=== PATIENT | female | born 1980 | race Caucasian/White ===

== ENCOUNTER 2016-05-02 18:28 | Emergency (ER) | payer OTHER ==
[2016-05-02] MEDS ORDERED: CEPHALEXIN 250 MG CAP As Ordered ONE (19:03)
--- NOTE | 2016-05-02 19:08 | EDDOCDS ---
Nurse's Notes [facility] Name: Juana Davey Age: 36 yrs Sex: Female : 1980 Arrival Date: 05/02/2016 Time: 18:28 Bed Triage 3 Private MD: NO PRIMARY PHYSICIAN, . Diagnosis: Acute pharyngitis Presentation: 05/02 18:44 Presenting complaint: Patient states: Patient states started yesterday with sore js13 throat, N/V, sweats, achy everywhere and ears are achy. Adult Sepsis Screening: The patient does not have new or worsening altered mentation. Patient's respiratory rate is less than 22. Systolic blood pressure is greater than 100. Patient has a qSOFA score of 0- Negative Sepsis Screen. Suicide/Homicide risk assessment- the patient denies having any suicidal and/or homicidal ideations and does not present with any other emotional, behavioral or mental health complaints. 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 Transition of care: patient was not received from another setting of care. 18:44 Acuity: LISSETTE Level 3 js13 18:44 Method Of Arrival: Walkin/Carried/Asstd js13 Triage Assessment: 18:46 General: Appears in no apparent distress, Behavior is appropriate for age, cooperative. js13 Pain: Location: all over Pain currently is 4 out of 10 on a pain scale. Pt Declines HIV testing. Neurological: Level of Consciousness is awake, alert. Respiratory: Airway is patent Respiratory effort is even, unlabored, Respiratory pattern is regular, symmetrical. Derm: Skin is pink, warm & dry. 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 ibuprofen 800 mg Oral tab as needed - PMHx: none; - PSHx: Tonsillectomy; - Social history: Smoking status: Patient uses tobacco products, current every day smoker. No barriers to communication noted, The patient speaks fluent Macedonian. - Family history: Not pertinent. - : The pt / caregiver states he / she is not on anticoagulants. Home medication list is obtained from the patient. - Exposure Risk Screening:: None identified. Screenin:47 Screening information is obtained from the patient. Fall risk: No risks identified. js13 Assistance ADL's: requires no assistance with activities of daily living. Abuse/DV Screen: The patient / caregiver reports he/she is: not in a situation that causes fear, pain or injury. Nutritional screening: No deficits noted. Advance Directives: There is no active DNR order. home support is adequate. Assessment: 19:01 General: Appears in no apparent distress, Behavior is appropriate for age, cooperative. js13 Pain: Pain currently is 4 out of 10 on a pain scale. Neurological: Level of Consciousness is awake, alert. Respiratory: Airway is patent Respiratory effort is even, unlabored, Respiratory pattern is regular, symmetrical. GI: Bowel sounds Abd is soft and non tender. Derm: Skin is pink, warm & dry. Vital Signs: 18:30 BP 126 / 76; Pulse 83; Resp 18 S; Temp 99.0(O); Pulse Ox 99% on R/A; Weight 74.84 kg gr2 (R); Height 5 ft. 5 in. (165.10 cm) (R); Pain 4/10; 18:30 Body Mass Index 27.46 (74.84 kg, 165.10 cm) gr2 Vitals: 18:30 Log In Time: May 02, 2016 at 18:30. gr2 18:57 Strep Screen is obtained and tested: Negative, a GATSNEG culture is ordered in [facility] and sent. ED Course: 18:30 Patient visited by Christiano Dickson. gr2 18:30 NO PRIMARY PHYSICIAN, . is Private Physician. gr2 18:30 Patient moved to Waiting gr2 18:31 Patient visited by Christiano Dickson. gr2 18:31 Patient moved to Pre RCE gr2 18:44 Roland Curtis PA-C is PHCP. ar2 18:44 Alex Hernandes MD is Attending Physician. ar2 18:45 Triage Initiated js13 18:47 Patient visited by Cass Alcala RN. js13 18:47 The patient / caregiver is instructed regarding the plan of care and ED course. js13 18:48 Patient visited by Roland Curtis PA-C. ar2 18:48 Patient moved to Triage 3 js13 18:57 GATS (NEGATIVE STREP SCREEN) Sent. js13 19:01 No IV's were initiated during this patient's visit. No procedures done that require js13 assistance. Administered Medications: 19:04 Drug: Cephalexin 500 mg [cephalexin 250 mg capsule (2 caps)] Route: PO; js13 19:07 Follow up: Response: Pt left department before re-evaluation is appropriate js13 Order Results: There are currently no results for this order. Outcome: 19:00 Discharge ordered by Provider. ar2 19:01 Discharge Assessment: Patient awake, alert and oriented x 3. No cognitive and/or js13 functional deficits noted. Patient verbalized understanding of disposition instructions. patient administered narcotics - no. The following High Risk Discharge criteria are identified: None. Discharged to home ambulatory. Condition: stable. No special radiology studies were completed. Property :Personal belongings accompany Pt. 19:05 Discharge instructions given to patient, Instructed on discharge instructions, follow js13 up and referral plans. medication usage, Demonstrated understanding of instructions, medications, Pt was receptive of discharge instructions/ teaching. Prescriptions given X 1. 19:07 Patient left the ED. js13 Signatures: Roland Curtis PA-C PA-C ar2 Cass Alcala RN RN js13 Christiano Dickson gr2 [facility] CENTERArtie
--- NOTE | 2016-05-02 19:08 | EDDOCDS ---
Physician Documentation [facility] Name: Juana Davey Age: 36 yrs Sex: Female : 1980 Arrival Date: 05/02/2016 Time: 18:28 Bed Triage 3 Private MD: NO PRIMARY PHYSICIAN, . Disposition: 05/02/16 19:00 Discharged to Home/Self Care. Impression: Acute pharyngitis. - Condition is Stable. - Discharge Instructions: Pharyngitis. - Prescriptions for Keflex 500 mg Oral Capsule - take 1 capsule by ORAL route every 12 hours for 10 days; 19 capsule. ZOFRAN ODT 4 mg - dissolve 1 tablet by ORAL route 4 times per day As needed do not chew, do not swallow whole; 10 tablet. - Medication Reconciliation, Local Pharmacy Hours form. - Follow up: Emergency Department; When: As needed; Reason: Fever > 102F, Worsening of conditions. - Problem is new. - Symptoms are unchanged. Historical: - Allergies: No known drug Allergies; - Home Meds: 1. ibuprofen 800 mg Oral tab as needed - PMHx: none; - PSHx: Tonsillectomy; - Social history: Smoking status: Patient uses tobacco products, current every day smoker. No barriers to communication noted, The patient speaks fluent Spanish. - Family history: Not pertinent. - : The pt / caregiver states he / she is not on anticoagulants. Home medication list is obtained from the patient. - Exposure Risk Screening:: None identified. 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 5 in. (165.10 cm) (R); Pain 4/10; 18:30 Body Mass Index 27.46 (74.84 kg, 165.10 cm) gr2 MDM: 18:51 Strep Screen, Nursing ordered. ar2 18:55 GATS (NEGATIVE STREP SCREEN) Ordered. EDMS 19:01 Cephalexin 500 mg PO once ordered. ar2 Administered Medications: 19:04 Drug: Cephalexin 500 mg [cephalexin 250 mg capsule (2 caps)] Route: PO; js13 19:07 Follow up: Response: Pt left department before re-evaluation is appropriate js13 Signatures: Dispatcher [employer] Roland Orta PA-C PA-C ar2 Cass Alcala,RN RN js13 MTDD
--- NOTE | 2016-05-05 11:34 | EDDOCDS ---
Physician Documentation [facility] Name: Juana Davey Age: 36 yrs Sex: Female : 1980 Arrival Date: 05/02/2016 Time: 18:28 Bed Triage 3 Private MD: NO PRIMARY PHYSICIAN, . Disposition: 05/02/16 19:00 Discharged to Home/Self Care. Impression: Acute pharyngitis. - Condition is Stable. - Discharge Instructions: Pharyngitis. - Prescriptions for Keflex 500 mg Oral Capsule - take 1 capsule by ORAL route every 12 hours for 10 days; 19 capsule. ZOFRAN ODT 4 mg - dissolve 1 tablet by ORAL route 4 times per day As needed do not chew, do not swallow whole; 10 tablet. - Medication Reconciliation, Local Pharmacy Hours form. - Follow up: Emergency Department; When: As needed; Reason: Fever > 102F, Worsening of conditions. - Problem is new. - Symptoms are unchanged. Historical: - Allergies: No known drug Allergies; - Home Meds: 1. ibuprofen 800 mg Oral tab as needed - PMHx: none; - PSHx: Tonsillectomy; - Social history: Smoking status: Patient uses tobacco products, current every day smoker. No barriers to communication noted, The patient speaks fluent Bulgarian. - Family history: Not pertinent. - : The pt / caregiver states he / she is not on anticoagulants. Home medication list is obtained from the patient. - Exposure Risk Screening:: None identified. 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 5 in. (165.10 cm) (R); Pain 4/10; 18:30 Body Mass Index 27.46 (74.84 kg, 165.10 cm) gr2 MDM: 18:51 Strep Screen, Nursing ordered. ar2 18:55 GATS (NEGATIVE STREP SCREEN) Ordered. EDMS 19:01 Cephalexin 500 mg PO once ordered. ar2 20:10 [facility] Payment Agreement was scanned into [employer] and attached to record. gjb 20:10 Financial registration complete. gjb 20:38 T-Sheet-- Draft Copy was scanned into [employer] and attached to record. klr Administered Medications: 19:04 Drug: Cephalexin 500 mg [cephalexin 250 mg capsule (2 caps)] Route: PO; js13 19:07 Follow up: Response: Pt left department before re-evaluation is appropriate js13 Signatures: Dispatcher [employer] EDRoland Howard PA-C PA-C ar2 Sullivan, Jennifer, RN RN js13 Snow Lopez Kathie klr The chart was reviewed and I authenticate all verbal orders and agree with the evaluation and treatment provided.Attachments: 20:10 [facility] Payment Agreement [facility] 20:38 T-Sheet-- Draft Copy klr Chart Complete MTDD
--- NOTE | 2016-05-05 11:34 | EDDOCDS ---
Nurse's Notes [facility] Name: Juana Davey Age: 36 yrs Sex: Female : 1980 Arrival Date: 05/02/2016 Time: 18:28 Bed Triage 3 Private MD: NO PRIMARY PHYSICIAN, . Diagnosis: Acute pharyngitis Presentation: 05/02 18:44 Presenting complaint: Patient states: Patient states started yesterday with sore js13 throat, N/V, sweats, achy everywhere and ears are achy. Adult Sepsis Screening: The patient does not have new or worsening altered mentation. Patient's respiratory rate is less than 22. Systolic blood pressure is greater than 100. Patient has a qSOFA score of 0- Negative Sepsis Screen. Suicide/Homicide risk assessment- the patient denies having any suicidal and/or homicidal ideations and does not present with any other emotional, behavioral or mental health complaints. Status: Patient is not a financial services specialist or dependent. Transition of care: patient was not received from another setting of care. 18:44 Acuity: LISSETTE Level 3 js13 18:44 Method Of Arrival: Walkin/Carried/Asstd js13 Triage Assessment: 18:46 General: Appears in no apparent distress, Behavior is appropriate for age, cooperative. js13 Pain: Location: all over Pain currently is 4 out of 10 on a pain scale. Pt Declines HIV testing. Neurological: Level of Consciousness is awake, alert. Respiratory: Airway is patent Respiratory effort is even, unlabored, Respiratory pattern is regular, symmetrical. Derm: Skin is pink, warm & dry. 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 ibuprofen 800 mg Oral tab as needed - PMHx: none; - PSHx: Tonsillectomy; - Social history: Smoking status: Patient uses tobacco products, current every day smoker. No barriers to communication noted, The patient speaks fluent [place]. - Family history: Not pertinent. - : The pt / caregiver states he / she is not on anticoagulants. Home medication list is obtained from the patient. - Exposure Risk Screening:: None identified. Screenin:47 Screening information is obtained from the patient. Fall risk: No risks identified. js13 Assistance ADL's: requires no assistance with activities of daily living. Abuse/DV Screen: The patient / caregiver reports he/she is: not in a situation that causes fear, pain or injury. Nutritional screening: No deficits noted. Advance Directives: There is no active DNR order. home support is adequate. Assessment: 19:01 General: Appears in no apparent distress, Behavior is appropriate for age, cooperative. js13 Pain: Pain currently is 4 out of 10 on a pain scale. Neurological: Level of Consciousness is awake, alert. Respiratory: Airway is patent Respiratory effort is even, unlabored, Respiratory pattern is regular, symmetrical. GI: Bowel sounds Abd is soft and non tender. Derm: Skin is pink, warm & dry. Vital Signs: 18:30 BP 126 / 76; Pulse 83; Resp 18 S; Temp 99.0(O); Pulse Ox 99% on R/A; Weight 74.84 kg gr2 (R); Height 5 ft. 5 in. (165.10 cm) (R); Pain 4/10; 18:30 Body Mass Index 27.46 (74.84 kg, 165.10 cm) gr2 Vitals: 18:30 Log In Time: May 02, 2016 at 18:30. gr2 18:57 Strep Screen is obtained and tested: Negative, a GATSNEG culture is ordered in [facility] and sent. ED Course: 18:30 Patient visited by Christiano Dickson. gr2 18:30 NO PRIMARY PHYSICIAN, . is Private Physician. gr2 18:30 Patient moved to Waiting gr2 18:31 Patient visited by Christiano Dickson. gr2 18:31 Patient moved to Pre RCE gr2 18:44 Roland Curtis PA-C is PHCP. ar2 18:44 Alex Hernandes MD is Attending Physician. ar2 18:45 Triage Initiated js13 18:47 Patient visited by Cass Alcala RN. js13 18:47 The patient / caregiver is instructed regarding the plan of care and ED course. js13 18:48 Patient visited by Roland Curtis PA-C. ar2 18:48 Patient moved to Triage 3 js13 18:57 GATS (NEGATIVE STREP SCREEN) Sent. js13 19:01 No IV's were initiated during this patient's visit. No procedures done that require js13 assistance. 20:10 [facility] Payment Agreement was scanned into [employer] and attached to record. jenna 20:38 T-Sheet-- Draft Copy was scanned into [employer] and attached to record. khang Administered Medications: 19:04 Drug: Cephalexin 500 mg [cephalexin 250 mg capsule (2 caps)] Route: PO; js13 19:07 Follow up: Response: Pt left department before re-evaluation is appropriate js13 Order Results: Lab Order: GATS (NEGATIVE STREP SCREEN); SPEC'M 05/02/16 18:57 Test: GATS CULTURE (NEG STREP SCR); Value: GATS RESULT NEGATIVE FOR STREP PYOGENES (GROUP A); Status: F Outcome: 19:00 Discharge ordered by Provider. ar2 19:01 Discharge Assessment: Patient awake, alert and oriented x 3. No cognitive and/or js13 functional deficits noted. Patient verbalized understanding of disposition instructions. patient administered narcotics - no. The following High Risk Discharge criteria are identified: None. Discharged to home ambulatory. Condition: stable. No special radiology studies were completed. Property :Personal belongings accompany Pt. 19:05 Discharge instructions given to patient, Instructed on discharge instructions, follow js13 up and referral plans. medication usage, Demonstrated understanding of instructions, medications, Pt was receptive of discharge instructions/ teaching. Prescriptions given X 1. 19:07 Patient left the ED. js13 Signatures: Roland Curtis PA-C PA-C ar2 Cass Alcala RN RN js13 Christiano Dickson2 Snow Lopez Kathie klr Chart Complete MTDD
--- NOTE | 2016-05-05 11:34 | EDDOCDS ---
Physician Documentation [facility] Name: Juana Davey Age: 36 yrs Sex: Female : 1980 Arrival Date: 05/02/2016 Time: 18:28 Bed Triage 3 Private MD: NO PRIMARY PHYSICIAN, . Disposition: 05/02/16 19:00 Discharged to Home/Self Care. Impression: Acute pharyngitis. - Condition is Stable. - Discharge Instructions: Pharyngitis. - Prescriptions for Keflex 500 mg Oral Capsule - take 1 capsule by ORAL route every 12 hours for 10 days; 19 capsule. ZOFRAN ODT 4 mg - dissolve 1 tablet by ORAL route 4 times per day As needed do not chew, do not swallow whole; 10 tablet. - Medication Reconciliation, Local Pharmacy Hours form. - Follow up: Emergency Department; When: As needed; Reason: Fever > 102F, Worsening of conditions. - Problem is new. - Symptoms are unchanged. Historical: - Allergies: No known drug Allergies; - Home Meds: 1. ibuprofen 800 mg Oral tab as needed - PMHx: none; - PSHx: Tonsillectomy; - Social history: Smoking status: Patient uses tobacco products, current every day smoker. No barriers to communication noted, The patient speaks fluent Nepali. - Family history: Not pertinent. - : The pt / caregiver states he / she is not on anticoagulants. Home medication list is obtained from the patient. - Exposure Risk Screening:: None identified. 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 5 in. (165.10 cm) (R); Pain 4/10; 18:30 Body Mass Index 27.46 (74.84 kg, 165.10 cm) gr2 MDM: 18:51 Strep Screen, Nursing ordered. ar2 18:55 GATS (NEGATIVE STREP SCREEN) Ordered. EDMS 19:01 Cephalexin 500 mg PO once ordered. ar2 20:10 [facility] Payment Agreement was scanned into [employer] and attached to record. gjb 20:10 Financial registration complete. gjb 20:38 T-Sheet-- Draft Copy was scanned into [employer] and attached to record. klr Administered Medications: 19:04 Drug: Cephalexin 500 mg [cephalexin 250 mg capsule (2 caps)] Route: PO; js13 19:07 Follow up: Response: Pt left department before re-evaluation is appropriate js13 Signatures: Dispatcher [employer] EDRoland Howard PA-C PA-C ar2 Sullivan, Jennifer, RN RN js13 Snow Lopez Kathie klr The chart was reviewed and I authenticate all verbal orders and agree with the evaluation and treatment provided.Attachments: 20:10 [facility] Payment Agreement [facility] 20:38 T-Sheet-- Draft Copy klr Chart Complete MTDD
== END 2016-05-02 19:07 | disposition home or self-care (01) ==
LOC: M ED 18:28
DX: J02.9 Acute pharyngitis, unspecified (principal); F17.210 Nicotine dependence, cigarettes, uncomplicated

== ENCOUNTER 2016-12-25 11:58 | Emergency (ER) | payer MEDICAID, OTHER ==
[~2016-12-25] VITALS: Ht 165.1 cm; Wt 90.9 kg
[2016-12-25 11:58] VITALS: BP 128/77
--- NOTE | 2016-12-25 12:49 | ED PDOC ---
Post-Departure Follow-Up no hx of pneumonia sinus infection or allergies and asthma, oow x 1 day, rto [facility] if sx increase Arie Crawley Dec 25, 2016 12:49
[2016-12-25] MEDS ORDERED: BENZ200C53 PO (12:54)
[2016-12-25] MEDS ORDERED: ZITHTAB PO (12:54)
== END 2016-12-25 13:06 | disposition home or self-care (01) ==
LOC: M ED 11:58
DX: J06.9 Acute upper respiratory infection, unspecified (principal)

== ENCOUNTER 2018-03-14 09:30 | Emergency (ER) | payer SELFPAY, OTHER ==
[2018-03-14] MEDS ORDERED: LIDOCAINE 1% MDV 20ML VIAL As Ordered (10:40)
[2018-03-14] MEDS: LIDOCAINE W/EPINEPHRINE 1% 20ML VIAL SC (10:41)
== END 2018-03-14 11:08 | disposition home or self-care (01) ==
LOC: M ED 09:30
DX: L02.214 Cutaneous abscess of groin (principal); F17.210 Nicotine dependence, cigarettes, uncomplicated
CPT/HCPCS: 87186

== ENCOUNTER 2021-04-20 10:27 | Emergency (ER) | payer SELFPAY ==
[~2021-04-20] VITALS: Ht 165.1 cm; Wt 77.3 kg
[~2021-04-20 10:27] MED LIST: BACT800T5 PO; BENZ200C70 PO; ZITHTAB PO
[2021-04-20 10:40] VITALS: BP 144/86
== END 2021-04-20 13:08 | disposition home or self-care (01) ==
LOC: M ED 10:27
DX: R50.9 Fever, unspecified (principal); R05.9 Cough, unspecified; R51.9 Headache, unspecified; U07.1 COVID-19; F17.210 Nicotine dependence, cigarettes, uncomplicated